=== PATIENT | male | born 1955 | race Caucasian/White ===

== ENCOUNTER 2016-10-02 14:46 | Emergency (ER) | payer MEDICARE ==
[~2016-10-02 14:46] MED LIST: ARAVA10 MG PO; FLOMAX0.4 MG PO; LEFLUNOMIDE20 MG; LEVAQUIN750 MG PO; LISINOPRIL10 MG PO; MOBIC15 MG; NUVIGIL150 MG; PREDNISOLONE5 MG; PREDNISONE10 MG PO; PRISTIQ100 MG; PRO-AIR; PROTONIX40 MG; PROTONIX40 MG PO; ROBITUSSIN-AC5 ML PO; SPIRIVA18 MCG INH; SYMBICORT 160-4.6 GM IH; WELLBUTRIN XL300 MG; ZOCOR20 MG
[2016-10-02] MEDS ORDERED: MYRBETRIQ50 M1 PO (15:18)
[2016-10-02] MEDS ORDERED: PROAIR RESPICL90 MCG INH (15:18)
[2016-10-02] MEDS ORDERED: SPIRIVA18 MC1 INH (15:19)
[2016-10-02] MEDS ORDERED: PROSCAR5 M1 PO (15:19)
[2016-10-02] MEDS ORDERED: ARAVA20 M1 PO (15:19)
[2016-10-02] MEDS ORDERED: OMEPRAZOLE20 M3 PO (15:19)
[2016-10-02] MEDS ORDERED: PREDNISONE5 M1 PO (15:20)
[2016-10-02] MEDS ORDERED: ZOCOR40 M1 PO (15:20)
[2016-10-02] MEDS ORDERED: ALBUTEROL2.5 MG/3 M INH (15:20)
[2016-10-02] MEDS ORDERED: BREO ELLIPTA 11 EAC1 INH (15:20)
[2016-10-02 15:43] LABS: BASO % 0.3 % (0-2); EOS % 1.9 % (0-7); EOSINOPHIL ABSOLUTE COUNT 0.2 tho/cmm (0.0-0.7); HCT-HEMATOCRIT 44.2 % (36.0-53.5); HGB-HEMOGLOBIN 14.9 gm/dl (13.5-17.0); IMMATURE GRANULOCYTES ABSOLUTE 0.14 tho/cmm (0-0.03); IMMATURE GRANULOCYTES PERCENT 1.4 % (0-0.3); LYMPH % 7.7 % (20-45); LYMPH ABSOLUTE COUNT 0.8 tho/cmm (0.8-4.5); MCH (MEAN CORPUSCULAR HGB) 31.7 pg (28.0-32.0); MCHC MEAN CORPUSCULAR HGB CONC 33.7 % (32.0-36.0); MEAN PLATELET VOLUME 9.9 cmc (9.4-12.4); MONO % 7.4 % (0-12); MONOCYTE ABSOLUTE COUNT 0.8 tho/cmm (0.0-1.2); NEUTROPHIL ABSOLUTE COUNT 8.2 tho/cmm (1.6-8.0); NEUTROPHIL-AUTOMATED 8.2 tho/cmm (1.6-8.0); NEUTROPHILS % 81.3 % (40-80); PLATELET COUNT 160 tho/cmm (150-450); RED CELL DISTRIBUTION WIDTH 14.8 % (12.4-16.4); WHITE BLOOD COUNT 10.1 tho/cmm (4.0-10.0)
[2016-10-02] MEDS ORDERED: GLUCOSAMINE CH1 EA10 PO (15:43)
[2016-10-02] MEDS ORDERED: COZAAR50 M1 PO (15:43)
[2016-10-02] MEDS ORDERED: POTASSIUM99 M5 PO (15:43)
[2016-10-02] MEDS ORDERED: CALCIUM 600 +1 EA10 PO (15:44)
[2016-10-02] MEDS ORDERED: HUMIRA CRO40 MG/0.8 (15:45)
[2016-10-02 15:47] LABS: ANION GAP 12 mmol/L (0-20); BLOOD UREA NITROGEN 14 mg/dl (6-24); CALCIUM 8.7 mg/dl (8.5-10.5); CARBON DIOXIDE-VENOUS 25 mmol/L (22-32); CHLORIDE 103 mmol/l (96-110); CREATININE 1.17 mg/dl (0.60-1.30); GLUCOSE 120 mg/dL (70-110); SODIUM 136 mmol/L (135-145); eGFR VALUE FOR BLACK 78 mL/Min
[2016-10-02 15:48] LABS: POTASSIUM 3.9 mmol/L (3.7-5.1)
[2017-03-15] MEDS ORDERED: SPIRIVA18 MC1 INH (11:54)
[2017-03-15] MEDS ORDERED: BROVANA15 MCG/22 INH (11:54)
[2017-03-15] MEDS ORDERED: PULMICORT0.5 MG/22 INH (11:55)
[2017-03-15] MEDS ORDERED: RANEXA500 M1 PO (11:58)
[2017-03-15] MEDS ORDERED: PROAIR HFA8.5 GM (11:59)
[2017-03-31] MEDS ORDERED: ULTRAM50 M1 PO (11:49)
[2017-03-31] MEDS ORDERED: LOVENOX40 MG/0.1 SC (11:50)
[2017-03-31] MEDS ORDERED: TYLENOL325 M2 PO (11:51)
[2017-03-31] MEDS ORDERED: ENULOSE10 GM/151 PO (11:51)
[2017-03-31] MEDS ORDERED: ACIDOPHILUS LA1 EAC1 PO (11:52)
[2017-03-31] MEDS ORDERED: METOCLOPRAMIDE H5 M2 PO (11:53)
[2017-03-31] MEDS ORDERED: DULCOLAX10 MG PR (11:53)
[2017-04-01] MEDS ORDERED: LUBRICANT EYE D10 ML OP (20:34)
[2017-04-01] MEDS ORDERED: VALTREX500 M1 PO (20:36)
[2017-04-01] MEDS ORDERED: POTASSIUM CHLO20 ME3 PO (20:37)
[2017-04-01] MEDS ORDERED: MIRALAX17 G2 PO (20:39)
[2017-04-01] MEDS ORDERED: NITROGLYCERIN0.4 M2 SL (21:06)
[2017-04-01] MEDS ORDERED: ISOSORBIDE MONO30 M4 PO (21:07)
[2017-04-01] MEDS ORDERED: KEPPRA500 M3 PO (21:08)
[2017-04-01] MEDS ORDERED: LASIX20 M1 PO (21:09)
[2017-04-01] MEDS ORDERED: LIPITOR10 M1 PO (21:10)
[2017-04-01] MEDS ORDERED: TENORMIN25 M1 PO (21:11)
[2017-04-01] MEDS ORDERED: LOVENOX30 MG/0.1 SC (21:11)
[2017-04-01] MEDS ORDERED: SPIRIVA18 MC1 INH (21:28)
[2017-04-01] MEDS ORDERED: PROAIR HFA8.5 GM INH (21:29)
[2017-04-01] MEDS ORDERED: ALBUTEROL2.5 MG/3 M INH (21:29)
[2017-04-01] MEDS ORDERED: BROVANA15 MCG/22 INH (21:29)
[2017-04-01] MEDS ORDERED: RANEXA500 M1 PO (21:29)
[2017-04-01] MEDS ORDERED: TYLENOL325 M2 PO (21:30)
[2017-04-01] MEDS ORDERED: LOVENOX40 MG/0.1 SC (21:30)
[2017-04-01] MEDS ORDERED: COZAAR50 M1 PO (21:30)
[2017-04-01] MEDS ORDERED: ENULOSE10 GM/151 PO (21:31)
[2017-04-01] MEDS ORDERED: OS-CAL 500+D31 EAC1 PO (21:31)
[2017-04-01] MEDS ORDERED: BREO ELLIPTA (21:32)
[2017-04-01] MEDS ORDERED: PULMICORT0.5 MG/22 INH (21:32)
[2017-04-01] MEDS ORDERED: CULTURELLE1 EAC1 PO (21:32)
[2017-04-01] MEDS ORDERED: DULCOLAX10 MG PR (21:33)
[2017-04-01] MEDS ORDERED: MYRBETRIQ50 M1 PO (21:33)
[2017-04-01] MEDS ORDERED: OMEPRAZOLE20 M3 PO (21:33)
[2017-04-01] MEDS ORDERED: PREDNISONE10 M1 PO (21:33)
[2017-04-01] MEDS ORDERED: PROSCAR5 M1 PO (21:34)
[2017-04-01] MEDS ORDERED: HUMIRA (21:34)
[2017-04-01] MEDS ORDERED: GLUCOSAMINE HC500 M1 PO (21:34)
[2017-04-01] MEDS ORDERED: ARAVA20 M1 (21:35)
[2017-04-10] MEDS ORDERED: DIFLUCAN200 M1 PO ×2 (12:30→12:46)
[2017-04-10] MEDS ORDERED: STOP TAKING (12:40)
[2017-04-10] MEDS ORDERED: LEVAQUIN750 M1 PO (12:46)
[2017-04-10] MEDS ORDERED: SENNA PLUS TAB1 EAC1 PO (12:52)
== END 2016-10-02 17:38 ==
LOC: EDMED 14:46
PROVIDERS: Emergency Medicine
DX: R07.2 Precordial pain (principal); I10 Essential (primary) hypertension; E78.5 Hyperlipidemia, unspecified; J44.9 Chronic obstructive pulmonary disease, unspecified; M06.9 Rheumatoid arthritis, unspecified; M81.0 Age-related osteoporosis without current pathological fracture; Z87.891 Personal history of nicotine dependence; Z79.51 Long term (current) use of inhaled steroids; Z79.899 Other long term (current) drug therapy